=== PATIENT | female | born 2005 | race Hispanic/Latino ===

== ENCOUNTER 2023-05-16 13:47 | Emergency (ER) | payer MEDICAID, OTHER ==
[2023-05-16] MEDS ORDERED: Ibuprofen 800 MG TAB ONE (15:17)
[2023-05-16] MEDS ORDERED: Cyclobenzaprine 10 MG TAB ONE (15:17)
== END 2023-05-16 17:19 | disposition home or self-care (01) ==
LOC: ERS 13:47
DX: S20.20XA Contusion of thorax, unspecified, initial encounter (principal); M79.10 Myalgia, unspecified site; V49.9XXA Car occupant (driver) (passenger) injured in unspecified traffic accident, initial encounter
CPT/HCPCS: 70450; 71045